=== PATIENT | female | born 1955 | race Caucasian/White ===

== ENCOUNTER → 2024-10-28 | Outpatient (CLI) | payer MEDICARE, SELFPAY ==
--- NOTE | 2024-10-28 12:30 | XR_ITS ---
Examination: Thyroid sonography complete TECHNIQUE: Grayscale sonographic images thyroid lobes Date and time: October 28, 2024 1210 hours INDICATIONS: Enlarged thyroid on clinical examination by physician 3 weeks ago FINDINGS: Right thyroid 3.8 cm Left thyroid 3.5 cm No solid nodules IMPRESSION: Negative study
== END | disposition home or self-care (01) ==
PROVIDERS: PCP Physician Assistant; Referring Provider Physician Assistant; Visit Provider Physician Assistant
DX: E04.9 Nontoxic goiter, unspecified (principal)
CPT/HCPCS: 76536